=== PATIENT | male | born 1960 | race Caucasian/White ===

== ENCOUNTER 2023-02-07 13:59 | Outpatient (CLI) | payer SELFPAY ==
--- NOTE | 2023-02-07 14:00 | USCV_ITS ---
Thomas Moctezuma Age: 62 Gender: M : 1960 Exam Date: 02/07/2023 15:06 Ordering Phys: Poli Russo DPM Technologist: Alexis Nielsen Exam Location: [facility] [place] Indication: Leg pain. Cramping RIGHT LEFT Brachial 161.00 mmHg Brachial 166.00 mmHg Pressure (mmHg) Waveform Pressure (mmHg) Waveform 88.00 High Thigh 99.00 70.00 Below Knee 68.00 DIFFERENTIAL REPAIRER 49.00 26.00 DPA 49.00 0.16 Ankle/Brachial Index 0.30 Pre-Exercise Toe Pressure 49.00 36.00 0.22 Pre-Exercise Toe/Brachial Index 0.30 FINDINGS Delayed peaking low amplitude PVR waveforms at the calf and at the ankle bilaterally. Resting ALESIA of 0.16 on the right side and 0.3 on the left side Resting TBI of 0.22 on the right side and 0.30 on the left side CONCLUSIONS 1. Markedly diminished resting ABIs and TBIs bilaterally 2. Features suggesting severe peripheral arterial disease bilaterally, possibly multisegmental Dr Sri Neff MD [facility] (Electronically Signed) Final Date: 07 February 2023 18:59 S
== END 2023-02-07 14:00 | disposition home or self-care (01) ==
PROVIDERS: Visit Provider Podiatrist Foot & Ankle Surgery
DX: I73.9 Peripheral vascular disease, unspecified (principal); M79.605 Pain in left leg; M79.604 Pain in right leg; R25.2 Cramp and spasm
CPT/HCPCS: 93923